=== PATIENT | female | born 1955 | race Caucasian/White ===

== ENCOUNTER → 2024-03-03 10:06 | Outpatient (REF) | payer MEDICARE, SELFPAY | LOC: HWRAD 10:06 | PROVIDERS: ATTENDING PHYSICIAN Internal Medicine | DX: Z12.31 Encounter for screening mammogram for malignant neoplasm of breast (principal); N95.1 Menopausal and female climacteric states; Z78.0 Asymptomatic menopausal state | CPT/HCPCS: 77063; 77067; 77080 ==

== ENCOUNTER → 2025-01-04 16:15 | Outpatient (REF) | payer MEDICARE, SELFPAY | LOC: DHSLP 16:15 | PROVIDERS: ATTENDING PHYSICIAN Internal Medicine Critical Care Medicine; FAMILY PHYSICIAN Internal Medicine | DX: G47.33 Obstructive sleep apnea (adult) (pediatric) (principal) | CPT/HCPCS: 95800 ==

== ENCOUNTER → 2025-05-28 09:56 | Outpatient (REF) | payer MEDICARE, SELFPAY | LOC: HWWDC 09:56 | PROVIDERS: ATTENDING PHYSICIAN Internal Medicine | DX: Z12.31 Encounter for screening mammogram for malignant neoplasm of breast (principal) | CPT/HCPCS: 77063; 77067 ==

== ENCOUNTER → 2025-06-09 14:45 | Outpatient (REF) | payer MEDICARE, SELFPAY | LOC: DHSLP 14:45 | PROVIDERS: ATTENDING PHYSICIAN Internal Medicine Critical Care Medicine; FAMILY PHYSICIAN Internal Medicine | DX: G47.33 Obstructive sleep apnea (adult) (pediatric) (principal) | CPT/HCPCS: 95800 ==